=== PATIENT | male | born 1990 | race Caucasian/White ===

== ENCOUNTER 2021-02-12 05:17 | Emergency (ER) | payer OTHER ==
[2021-02-12 05:49] VITALS: BP 116/66; PULSE 62; TEMP 97.2
[2021-02-12] MEDS ORDERED: DIPHTH,PERTUSS(ACELL),TET 0.5 ML DISP.SYRIN IM ONE ×2 (06:07→06:10)
[2021-02-12] MEDS ORDERED: AMOX TR/POT CLAV 875MG/125MG TABLETS (FP) PO ONE (06:07)
[2021-02-12] MEDS ORDERED: AMOX TR/POT CLAV 875MG/125MG TABLETS (FP) ONE (06:10)
== END 2021-02-12 06:31 | disposition home or self-care (01) ==
LOC: JER 05:17
PROC: 3E0234Z Introduction of Serum, Toxoid and Vaccine into Muscle, Percutaneous Approach (ICD-10-PCS; principal; 2021-02-12)
DX: S60.311A Abrasion of right thumb, initial encounter (principal)
CPT/HCPCS: 90715; 99283-25